=== PATIENT | male | born 1990 | race Caucasian/White ===

== ENCOUNTER → 2016-12-01 | Outpatient (CLI) | payer OTHER ==
[~2016-12-01] MED LIST: NO MEDICATIONS; PERCOCET5/325 PO
--- NOTE | ~2016-12-01 | US8 ---
[facility] A Service [facility] RADIOLOGY TEXT RESULTS PATIENT: SIGIFREDO PEDERSON LOCATION: [facility] : [birth year] UNIT #: [id number] AGE: [address]: KRISTAL MALDONADO SEX: M ORDER DR: [id number] [address] [address] [id number] O MR#: [id number] Acc #: [id number] NAME: SIGIFREDO PEDERSON : 1990 SEX: M STUDY DATE/TIME: 12/01/2016 14:46 UNIT: [facility] ROOM: STUDY DESCRIPTION: US Abdominal Wall/Quadrant Attending Physician: Kristal Maldonado Aprn Referring Physician: Kristal Maldonado Aprn Ordering Physician: Kristal Maldonado Aprn Primary Care Physician: Kristal Maldonado Aprn MEDICAL IMAGING REPORT This report is preliminary unless electronic signature is present. EXAM Ultrasound of the abdomen soft tissue INDICATION Palpable area in the right lower quadrant. Patient reports it has been there for 6-7 months. He denies any history of trauma and says that it is not painful. FINDINGS There is a well-circumscribed hypoechoic structure within the area of concern, measuring up to 2.6 x 2.5 x 0.5 cm. It does demonstrate some internal color Doppler flow. IMPRESSION Within the area of concern, the patient has an indeterminate hypoechoic nodule measuring up to 2.5 x 2.5 x 0.5 cm. It is indeterminate; lipoma would be a consideration although its appearance is atypical for that, and its appearance is also atypical for a lymph node. Further evaluation with CT is suggested with a marker to be placed over the area of concern. Dictated by... Daniela Crocker M.D. THIS IS AN ELECTRONICALLY VERIFIED REPORT Daniela Crocker M.D. at 12/03/2016 10:08 AM EMMETT/mayela TD: 12/01/2016 19:01 JOB #: [id number] [facility] A Service of [facility] RADIOLOGY TEXT RESULTS PATIENT: SIGIFREDO PEDERSON LOCATION: [facility] #: [id number] : [birth year] UNIT #: [id number] AGE: [address]: KRISTAL MALDONADO SEX: M ORDER DR: MEDICAL IMAGING REPORT Page 1 of 1
== END | disposition home or self-care (01) ==
LOC: SGUS 13:58
DX: K66.8 Other specified disorders of peritoneum (principal)
CPT/HCPCS: 76705

== ENCOUNTER 2017-01-25 08:34 | Emergency (ER) | payer OTHER ==
[~2017-01-25 08:34] MED LIST changes: -NO MEDICATIONS
[2017-03-17] MEDS ORDERED: NO MEDICATIONS (15:46)
== END 2017-01-25 09:38 | disposition home or self-care (01) ==
LOC: CFTX 08:34 → CED 08:34 → CFTX 08:56
DX: L05.01 Pilonidal cyst with abscess (principal); F17.210 Nicotine dependence, cigarettes, uncomplicated
CPT/HCPCS: 10080; 87070; 87205; 99283

== ENCOUNTER 2017-01-27 09:40 | Emergency (ER) | payer OTHER ==
[2017-03-17] MEDS ORDERED: NO MEDICATIONS (15:46)
== END 2017-01-27 10:15 | disposition home or self-care (01) ==
LOC: CED 09:40 → CFTX 09:40
DX: Z48.00 Encounter for change or removal of nonsurgical wound dressing (principal)
CPT/HCPCS: 99283

== ENCOUNTER 2017-01-31 11:54 | Emergency (ER) | payer OTHER ==
[2017-03-17] MEDS ORDERED: NO MEDICATIONS (15:46)
== END 2017-01-31 12:30 | disposition home or self-care (01) ==
LOC: CED 11:54 → CFTX 11:54
DX: Z48.817 Encounter for surgical aftercare following surgery on the skin and subcutaneous tissue (principal); F17.200 Nicotine dependence, unspecified, uncomplicated
CPT/HCPCS: 99282

== ENCOUNTER → 2017-03-17 | Day surgery (SDC) | payer OTHER ==
[~2017-03-17] MED LIST changes: +NO MEDICATIONS
--- NOTE | ~2017-03-17 | OR ---
Unit #: [id number] #: [id number] Patient: SIGIFREDO PEDERSON [id number] [address] [address] [id number] O MR#: [id number] NAME: SIGIFREDO PEDERSON ROOM: Date of Procedure: 03/17/2017 Admission Date: 03/17/2017 Surgeon: Sebastian Martell Jr., M.D. : 1990 Attending Physician: Sebastian Martell Jr., M.D. Primary Care Physician: Benson Oh Aprn OPERATIVE REPORT INDICATIONS FOR PROCEDURE The patient is a 27-year-old white male, who presented to the office recently complaining of a chronic infected cyst or mass of the right lower quadrant abdominal wall. This has been there for months and has not resolved. He has had some drainage in the past previously though. 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 He is brought in this time for removal of these under conscious sedation with local anesthesia. The patient understands the procedure including the risk, including that of re-infection, poor healing and consents. 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 The pilonidal did extend on down below the area that appeared inflamed. ANESTHESIA 1% Xylocaine and 0.5% Xylocaine with epinephrine locally and IV Versed and fentanyl with a total of 9 mg of Versed given and 100 mcg of fentanyl given. PROCEDURE PERFORMED Excision of the two cysts described above. DESCRIPTION OF PROCEDURE The patient was positioned in supine position. After being prepped and draped in routine fashion, he was anesthetized locally in the area of the cyst of the right lower quadrant abdominal wall. The patient was given IV Versed and fentanyl slowly during the entire procedure with a total of 9 mg of Versed and 100 mcg of fentanyl being given a total. At this point, an elliptical incision was made around the mass with being totally excised from the surrounding tissue and down to the deeper subcutaneous tissue with a #10 blade scalpel. After it was completely removed, it was sent to Pathology. Hemostasis was achieved with Bovie cautery. The deeper tissue was approximated with interrupted 3-0 Vicryl sutures, subcutaneous approximated with interrupted 3-0 Vicryl sutures. Skin edges approximated with stainless-steel skin clips and skin stapling device. Sterile compressive dressing was applied externally. The patient was then rotated over into prone position and prepped and draped in routine fashion for Unit #: [id number] #: [id number] Patient: SIGIFREDO PEDERSON removal of the cyst of the sacral area. An elliptical incision was made around the cyst after this area was locally anesthetized with 1% Xylocaine with epinephrine and 0.5% Xylocaine with epinephrine. The cyst was excised from top to bottom and down at the lower portion did extend on down at least 5 or 6 cm below the area that appeared to be inflamed. This was tracking both laterally to the left and inferior as noted above. The entire cystic portion was removed along with the tracts and after it was removed, it was sent to Pathology. Hemostasis was achieved with Bovie cautery. The wound was packed open with saline moist dry dressings. Sterile dressings were applied externally. Estimated blood loss for both procedures were less than 75 mL. The patient received less than 800 mL crystalloid solution during the procedure. Sponges and instruments counts were correct x3. No drains were used. No complications. The patient was taken to the recovery room with stable vital signs in satisfactory condition. Dictated by... Sebastian Martell Jr., M.Benjamín. JEWEL/deni TD: 03/17/2017 16:18 JOB #: [id number] OPERATIVE REPORT Page 1 of 1 X Sebastian Martell MD X PROCEDURE OPERATIVE NOTE
== END | disposition home or self-care (01) ==
LOC: CSUR 07:30
DX: L72.0 Epidermal cyst (principal); L08.9 Local infection of the skin and subcutaneous tissue, unspecified; L90.5 Scar conditions and fibrosis of skin; L92.3 Foreign body granuloma of the skin and subcutaneous tissue; F17.210 Nicotine dependence, cigarettes, uncomplicated
CPT/HCPCS: 88304; J0878; J2250; J3010; J3370

== ENCOUNTER 2017-03-18 04:28 | Emergency (ER) | payer OTHER ==
[~2017-03-18] VITALS: Ht 175.3 cm; Wt 81.6 kg
== END 2017-03-18 06:35 | disposition home or self-care (01) ==
LOC: CED 04:28
DX: Z48.817 Encounter for surgical aftercare following surgery on the skin and subcutaneous tissue (principal); F17.210 Nicotine dependence, cigarettes, uncomplicated; Z79.899 Other long term (current) drug therapy
CPT/HCPCS: 99282

== ENCOUNTER 2017-03-18 23:38 | Emergency (ER) | payer OTHER ==
[~2017-03-18] VITALS: Ht 175.3 cm; Wt 81.6 kg
== END 2017-03-19 01:13 | disposition home or self-care (01) ==
LOC: CED 23:38
DX: L76.22 Postprocedural hemorrhage of skin and subcutaneous tissue following other procedure (principal); F17.200 Nicotine dependence, unspecified, uncomplicated
CPT/HCPCS: 99283